=== PATIENT | female | born 2000 | race African-American/Black ===

== ENCOUNTER 2020-08-04 02:08 | Emergency (ER) | payer OTHER, SELFPAY ==
--- NOTE | ~2020-08-04 | XR_ITS ---
EXAMINATION: XR chest 2V DATE: 08/04/2020 02:45 INDICATION: Shortness of breath. Chest pain. TECHNIQUE: PA and lateral views of the chest were obtained. COMPARISON: None FINDINGS: The lungs are clear with no focal airspace opacities, pulmonary edema, pleural effusion or pneumothor ax. The cardiomediastinal silhouette is normal. Mild thoracic dextrocurvature. IMPRESSION: 1. No acute cardiopulmonary disease. Reviewed, dictated and finalized at location A.
[2020-08-04 02:13] VITALS: BP 137/98; PULSE 106; RESP 26; O2SAT 100
[2020-08-04] MEDS: methylPREDNISolone SOD SUCC 125 MG VIAL IM (02:20)
--- NOTE | 2020-08-04 02:21 | ECG_ITS ---
Measurements Intervals [place] Rate: 98 P: 66 NE: 170 QRS: -83 QRSD: 94 T: 54 QT: 346 QTc: 443 Interpretive Statements SINUS RHYTHM LEFT AXIS DEVIATION DELAYED PRECORDIAL R/S TRANSITION BASELINE WANDER- II, III BORDERLINE ECG Electronically Signed On 08-04-2020 6:46:59 CDT by Raciel Bowen D.O.
[2020-08-04 02:29] VITALS: PULSE 104; RESP 21
[2020-08-04] MEDS: IPRATROPIUM BR 0.02% INH SOLN 0.5 MG/2.5 ML VIAL INHALATION (02:29)
[2020-08-04] MEDS: ALBUTEROL SULFATE NEB 2.5 MG/0.5 ML INH 5 MG INHALATION (02:29)
--- NOTE | 2020-08-04 02:33 | ED.GENADULT ---
HPI - General Adult General Chief complaint: Shortness of Breath/Dyspnea Stated complaint: chest pain Time Seen by Provider: 08/04/20 02:12 History of Present Illness HPI narrative: Patient 20-year-old female who presents to emergency department with chief complaint of short of breath. Patient reports that she is recently had a cough and is felt somewhat short of breath and has had some wheezing. Patient states that she has been tested for COVID-19 and had a negative test result. Patient states that tonight she started feeling very short of breath and was wheezing at home and felt as though her chest was extremely tight. The patient states that somewhat improved upon arrival here and currently has no pain but still feels somewhat short of breath. Patient reports she does not smoke cigarettes but occasionally smokes marijuana. Patient denies fever, denies history of asthma. Related Data Allergies Allergy/AdvReac Type Severity Reaction Status Date / Time No Known Allergies Allergy Verified 08/04/20 02:17 Review of Systems Review of Systems: Narrative: A 10 system review of systems was completed on the patient and is negative except for what is stated in the HPI. Nursing and ancillary documentation was reviewed. [facility] Social History Social History Gender identity (if verbalized by the patient): Female Exam Narrative: Exam Narrative: GENERAL: Well-appearing, well-nourished, and in no acute distress. HEAD: Normocephalic, atraumatic. EYES: PERRLA and EOMI. ENT: Nares clear, no rhinorrhea or epistaxis. Mucous membranes moist. NECK: Supple. CHEST: Wheezing present bilaterally to auscultation. No respiratory distress. HEART: Regular rate and rhythm. No murmur heard. Normal peripheral pulses. ABDOMEN: Soft, nontender, nondistended, normal active bowel sounds. EXTREMITIES: Normal range of motion. No edema. SKIN: Warm, dry, no rash. NEURO: No focal deficits. Alert and oriented x3. PSYCH: Normal mood and affect. Course Vital Signs Vital signs: Vital Signs Pulse Rate 106 H 08/04/20 02:13 Respiratory Rate 26 H 08/04/20 02:13 Blood Pressure 137/98 H 08/04/20 02:13 Pulse Oximetry 100 08/04/20 02:13 Pulse Rate 104 H 08/04/20 02:29 Respiratory Rate 21 H 08/04/20 02:29 Blood Pressure 137/98 H 08/04/20 02:13 Pulse Oximetry 100 08/04/20 02:13 Medical Decision Making Vital Signs Vital Signs: Vital Signs Pulse Rate 106 H 08/04/20 02:13 Respiratory Rate 26 H 08/04/20 02:13 Blood Pressure 137/98 H 08/04/20 02:13 Pulse Oximetry 100 08/04/20 02:13 Pulse Rate 104 H 08/04/20 02:29 Respiratory Rate 21 H 08/04/20 02:29 Blood Pressure 137/98 H 08/04/20 02:13 Pulse Oximetry 100 08/04/20 02:13 Discharge Plan Discharge Clinical Impression: Bronchitis, Acute bronchospasm Patient Disposition: Home, Self-Care Condition: Stable Instructions: Antibiotic Form, Acute Bronchitis (ED), Bronchospasm (ED) Prescriptions: New albuterol sulfate 90 mcg/actuation HFA aerosol inhaler 2 puff inhalation QID PRN (Reason: shortness of breath or wheezing) Qty: 8.5 RF: 0 methylprednisolone [Medrol (Dante)] 4 mg tablets,dose pack See Rx Instructions PO .COMPLEX Qty: 21 RF: 0 benzonatate 200 mg capsule 200 mg PO TID PRN (Reason: cough) Qty: 21 RF: 0 Follow-up/Referrals: PHYSICIAN,[facility] [employer] [facility] [Primary Care Provider] - Sean Quick MD [Physician] - 1 Week Time of Disposition: 03:09
[2020-08-04 03:30] VITALS: BP 129/83; PULSE 66; RESP 18; TEMP 36.6; O2SAT 100
== END 2020-08-04 03:31 | disposition home or self-care (01) ==
PROVIDERS: Emergency Provider Emergency Medicine
DX: J40 Bronchitis, not specified as acute or chronic (principal); J98.01 Acute bronchospasm; R94.31 Abnormal electrocardiogram [ECG] [EKG]
CPT/HCPCS: 71046; 93005; 94640; 96372; 99283; J2930